=== PATIENT | female | born 1980 ===

== ENCOUNTER 2017-06-06 09:19 | Emergency (ER) | payer MEDICAID ==
[2017-06-06 09:37] VITALS: BP 111/75; PULSE 72; RESP 16; TEMP 97; O2SAT 99
--- NOTE | 2017-06-06 10:40 | ED PDOC ---
HPI: Female Pain Time Seen by Provider: 06/06/17 09:44 Chief Complaint (Nursing): Female Genitourinary Chief Complaint (Provider): Possible tampon in vaginal canal History Per: Patient History/Exam Limitations: no limitations Onset/Duration Of Symptoms: Days Additional Complaint(s): Pt states she was out drinking a lot on (2 nights ago). PT states she thinks she removed her tampon but isn't sure. PT states last night she could not sleep because she was concerned about it still being in there. PT denies pain, N/V. Past Medical History Reviewed: Historical Data, Nursing Documentation, Vital Signs Vital Signs: Last Vital Signs Temp 97 F L 06/06/17 09:34 Pulse 72 06/06/17 09:34 Resp 16 06/06/17 09:34 BP 111/75 06/06/17 09:34 Pulse Ox 99 06/06/17 09:34 - Medical History PMH: No Chronic Diseases - Surgical History Surgical History: No Surg Hx - Family History Family History: States: No Known Family Hx - Living Arrangements Living Arrangements: With Family - Social History Current smoker - smoking cessation education provided: No - Allergies Allergies/Adverse Reactions: Allergies Allergy/AdvReac Type Severity Reaction Status Date / Time No Known Allergies Allergy Verified 06/06/17 09:34 Review of Systems ROS Statement: Except As Marked, All Systems Reviewed And Found Negative Constitutional: Negative for: Fever, Chills Genitourinary Female: Positive for: Other. Negative for: Vaginal Discharge, Pelvic Pain Physical Exam - Reviewed Nursing Documentation Reviewed: Yes Vital Signs Reviewed: Yes - Physical Exam Appears: Positive for: Well, Non-toxic, No Acute Distress Head Exam: Positive for: ATRAUMATIC, NORMAL INSPECTION, NORMOCEPHALIC Skin: Positive for: Normal Color, Warm, DRY Eye Exam: Positive for: Normal appearance ENT: Positive for: Normal ENT Inspection Neck: Positive for: Normal, Painless ROM Respiratory: Negative for: Accessory Muscle Use, Respiratory Distress Pelvic Exam: Positive for: External Exam Normal, Speculum Exam Normal, Bimanual Exam Normal Back: Positive for: Normal Inspection Extremity: Positive for: Normal ROM Neurologic/Psych: Positive for: Alert, Oriented - ECG O2 Sat by Pulse Oximetry: 99 Disposition - Clinical Impression Clinical Impression: Normal vaginal exam - Patient ED Disposition Is Patient to be Admitted: No Counseled Patient/Family Regarding: Diagnosis, Need For Followup - Disposition Disposition: Routine/Home Disposition Time: 10:24 Condition: GOOD
== END 2017-06-06 10:31 | disposition home or self-care (01) ==
LOC: H.ER 09:19
DX: Z03.89 Encounter for observation for other suspected diseases and conditions ruled out (principal)

== ENCOUNTER 2017-12-04 09:51 | Emergency (ER) | payer MEDICAID ==
[2017-12-04 10:00] VITALS: BMI 21.1
[2017-12-04 10:02] VITALS: BP 119/60; PULSE 89; RESP 18; TEMP 97.9; O2SAT 98
[2017-12-04 11:30] LABS: SQUAMOUS EPITHIAL 23 /hpf (0-5); URINE BACTERIA OCC (<OCC); URINE BILIRUBIN NEGATIVE (NEGATIVE); URINE BLOOD MODERATE (NEGATIVE); URINE CLARITY TURBID (Clear); URINE COLOR YELLOW (YELLOW); URINE GLUCOSE (UA) NEG (Normal); URINE LEUKOCYTE ESTERASE LARGE Leu/uL (Negative); URINE NITRATE NEGATIVE (NEGATIVE); URINE PROTEIN 30 mg/dL (NEGATIVE); URINE UROBILINOGEN 0.2-1.0 mg/dL (0.2-1.0); WBC CLUMPS RARE /hpf
--- NOTE | 2017-12-04 11:43 | ED PDOC ---
HPI: Female Pain Time Seen by Provider: 12/04/17 10:17 Chief Complaint (Nursing): Female Genitourinary Chief Complaint (Provider): Pain with urination, urinary frequency History Per: Patient History/Exam Limitations: no limitations Past Medical History Vital Signs: Last Vital Signs Temp 97.9 F 12/04/17 10:00 Pulse 89 12/04/17 10:00 Resp 18 12/04/17 10:00 BP 119/60 12/04/17 10:00 Pulse Ox 98 12/04/17 10:00 - Home Medications Home Medications: Ambulatory Orders Medication Instructions Recorded Ciprofloxacin [Cipro] 500 mg PO BID #10 tab 12/04/17 - Allergies Allergies/Adverse Reactions: Allergies Allergy/AdvReac Type Severity Reaction Status Date / Time No Known Allergies Allergy Verified 06/06/17 09:34 - ECG O2 Sat by Pulse Oximetry: 98 Disposition - Clinical Impression Clinical Impression: UTI (urinary tract infection) - Patient ED Disposition Is Patient to be Admitted: No Counseled Patient/Family Regarding: Diagnosis, Need For Followup, Rx Given - Disposition Disposition: Routine/Home Disposition Time: 11:41 Condition: GOOD Prescriptions: Ciprofloxacin [Cipro] 500 mg PO BID #10 tab Instructions: Urinary Tract Infection in Women (ED)
== END 2017-12-04 11:51 | disposition home or self-care (01) ==
LOC: H.ER 09:51
DX: N39.0 Urinary tract infection, site not specified (principal)